=== PATIENT | male | born 1955 | race Two or more races ===

== ENCOUNTER 2023-08-12 19:27 | Inpatient (IN) | payer MEDICARE, OTHER ==
[~2023-08-12] VITALS: Ht 182.9 cm; Wt 74.9 kg
[2023-08-12] MEDS ORDERED: methylPREDNISolone SOD SUCC 125 MG/2ML VIAL ONE (19:54)
[2023-08-12 20:05] VITALS: O2SAT 94
[2023-08-12 20:06] LABS: BASOPHILS # (AUTO) 0.1 K/uL (0.0-0.2); BASOPHILS % (AUTO) 0.3 % (0.0-2.0); EOSINOPHILS # (AUTO) 0.4 K/uL (0.0-0.7); EOSINOPHILS % (AUTO) 1.6 % (0.0-6.0); HEMATOCRIT 37 % (39-51); HEMOGLOBIN 11.9 g/dL (13.5-17.5); LYMPHOCYTES % (AUTO) 7.6 % (20.0-44.0); MEAN CORPUSCULAR HEMOGLOBIN 30 PG (26.0-33.0); MEAN CORPUSCULAR HGB CONC 33 g/dl (31.0-36.0); MEAN CORPUSCULAR VOLUME 92 fL (80-96); MONOCYTES # (AUTO) 0.5 K/uL (0.1-1.30); MONOCYTES % (AUTO) 1.9 % (2.0-12.0); NEUTROPHILS # (AUTO) 23.8 K/uL (1.8-8.9); NEUTROPHILS % (AUTO) 88.6 % (43.0-81.0); PLATELET COUNT (AUTO) 391 K/uL (150-450); RED BLOOD CELL COUNT(AUTO) 3.98 MIL/uL (4.5-6.0); RED CELL DISTRIBUTION WIDTH 16.6 % (11.5-15.0); WHITE BLOOD COUNT (AUTO) 26.8 K/uL (4.3-11.0)
[2023-08-12] MEDS: IPRATROPIUM NEB FS 0.5 MG/2.5 ML AMPUL.NEB NEB ONE (20:06)
[2023-08-12] MEDS: ALBUTEROL FS 2.5 MG/3 ML VIAL.NEB NEB ONE (20:06)
[2023-08-12] MEDS: methylPREDNISolone SOD SUCC 125 MG/2ML VIAL IV ONE (20:08)
[2023-08-12] MEDS ORDERED: IPRATROPIUM NEB FS 0.5 MG/2.5 ML AMPUL.NEB ONE (20:09)
[2023-08-12] MEDS ORDERED: ALBUTEROL FS 2.5 MG/3 ML VIAL.NEB ONE (20:09)
[2023-08-12 20:15] LABS: CALCIUM, SERUM 8.6 mg/dL (8.5-10.1); CARBON DIOXIDE 27 mmol/L (21-32); CHLORIDE 97 mmol/L (98-107); CREATININE 1.4 mg/dL (0.6-1.3); GLUCOSE 294 mg/dL (74-106); POTASSIUM 3.6 mmol/L (3.5-5.1); SODIUM SERUM 134 mmol/L (136-145); UREA NITROGEN, BLOOD 10 mg/dL (7-18)
[2023-08-12 20:18] VITALS: O2SAT 91
[2023-08-12 20:20] LABS: ALANINE AMINOTRANSFERASE 16 U/L (12-78); ALBUMIN 2.5 g/dL (3.4-5.0); ALKALINE PHOSPHATASE 149 U/L (46-116); ASPARTATE AMINOTRANSFERASE 18 U/L (15-37); BILIRUBIN,DIRECT 0.1 mg/dL (0.0-0.2); BILIRUBIN,TOTAL 0.2 mg/dL (0.2-1.0); TOTAL PROTEIN, SERUM 8.4 g/dL (6.4-8.2)
[2023-08-12 20:37] LABS: INR 1.15 (0.91-1.10); PARTIAL THROMBOPLASTIN TIME 34.4 SEC (24.3-34.3); PROTHROMBIN TIME 12.1 SECS (9.2-11.1)
[2023-08-12 20:43] LABS: LACTIC ACID 2.4 mmol/L (0.4-2.0)
[2023-08-12] MEDS: AZITHROMYCIN 500 MG in IV D5W 250 ML IV ONE (21:00)
[2023-08-12] MEDS: CEFTRIAXONE 1GM BAG (ER ONLY) 1 GM/50 ML PIGGYBACK IV ONE (21:10)
[2023-08-12 21:45] LABS: APPEARANCE,URINE CLEAR (CLEAR); BILIRUBIN,URINE NEGATIVE (NEGATIVE); BLOOD, URINE NEGATIVE Ery/uL (NEGATIVE); COLOR,URINE YELLOW (YELLOW); KETONES,URINE NEGATIVE (NEGATIVE); LEUKOCYTE ESTERASE ,URINE NEGATIVE (NEGATIVE); NITRITE, URINE NEGATIVE (NEGATIVE); PROTEIN,URINE NEGATIVE (NEGATIVE); UGLUCOSE NEGATIVE (NEGATIVE); UROBILINOGEN,URINE 0.2 EU/dL (0.2)
[2023-08-12] MEDS ORDERED: ONDANSETRON HCL/PF 4 MG/2 ML VIAL IVP PRN (22:00)
[2023-08-12] MEDS ORDERED: ALBUTEROL FS 2.5 MG/3 ML VIAL.NEB NEB PRN (22:00)
[2023-08-12] MEDS ORDERED: IPRATROPIUM NEB FS 0.5 MG/2.5 ML AMPUL.NEB NEB PRN (22:00)
[2023-08-12] MEDS ORDERED: MAG HYDROX/AL HYDROX/SIMETH 30 ML UDC PO PRN (22:00)
[2023-08-12] MEDS ORDERED: MAGNESIUM HYDROXIDE 30 ML UDC PO PRN (22:00)
[2023-08-12] MEDS ORDERED: ZOLPIDEM TARTRATE 5 MG TABLET PO PRN (22:00)
[2023-08-12] MEDS ORDERED: ACETAMINOPHEN 325 MG TABLET PO PRN (22:00)
[2023-08-12] MEDS ORDERED: Z GUARD REMEDY 4 OZ OINT TP PRN (22:00)
[2023-08-12] MEDS ORDERED: AZITHROMYCIN 500 MG VIAL ONE (22:01)
[2023-08-12] MEDS ORDERED: CEFTRIAXONE 1GM BAG (ER ONLY) 50 ML IV ONE (22:01)
[2023-08-12] MEDS: IV NS 0.9% 1,000 ML BAG IV ONE (22:13)
[2023-08-12 22:14] LABS: ANISOCYTOSIS 1+; BAND % (MANUAL) 2 % (0.0-5.0); EOSINOPHILS % (MANUAL) 4 % (0-4); LYMPHOCYTES % (MANUAL) 5 % (16-48); MONOCYTES % (MANUAL) 2 % (0-11.0); NEUTROPHILS % (MANUAL) 87 (42-76); OVALOCYTES RARE; PLATELET ESTIMATE ADEQUATE; TEAR DROP CELLS RARE
[2023-08-13] VITALS (8 sets, daily range): BP systolic 101–123; BP diastolic 54–73; TEMP 97.7–98.8; O2SAT 96–100
[2023-08-13] MEDS: IV NS 0.9% 1,000 ML IV PRN (00:16)
[2023-08-13] MEDS: PIPERACILLIN /TAZOBACTAM 3.375 G in IV D5W 50 ML IV SCH (00:17)
[2023-08-13] MEDS: VANCOMYCIN 1.75 GM in IV D5W 500 ML IV ONE (01:19)
[2023-08-13] MEDS: methylPREDNISolone SOD SUCC 40 MG/ML VIAL IV SCH (05:14)
[2023-08-13 06:03] LABS: ABG BASE EXCESS 1.6 mmol/L; ABG OXYGEN SATURATION 98.3 % (92.0-98.5); ABG PCO2 38.7 mmHg (35.0-45.0); ABG TOTAL HEMOGLOBIN 11.7 G/dL (13.5-18.0); AaDO2 117.7 mmHg; COHb 0.3 % (0.5-1.5); MetHb 0.2 % (0.0-1.5); O2Hb 97.8 % (94.0-97.0); SITE, ABG Right Brachial; VENT MODE, BG N/C 40
[2023-08-13 07:15] LABS: CALCIUM, SERUM 8.5 mg/dL (8.5-10.1); CREATININE 1.3 mg/dL (0.6-1.3); MAGNESIUM 1.6 mg/dL (1.8-2.4); PHOSPHORUS 3.6 mg/dL (2.5-4.9); POTASSIUM 4.2 mmol/L (3.5-5.1)
[2023-08-13 07:35] LABS: HEMATOCRIT 30 % (39-51); HEMOGLOBIN 10.3 g/dL (13.5-17.5); LYMPHOCYTES # (AUTO) 0.4 K/uL (0.8-4.8); LYMPHOCYTES % (AUTO) 2.4 % (20.0-44.0); MEAN CORPUSCULAR HEMOGLOBIN 33 PG (26.0-33.0); MEAN CORPUSCULAR HGB CONC 35 g/dl (31.0-36.0); MEAN CORPUSCULAR VOLUME 96 fL (80-96); MONOCYTES # (AUTO) 0.1 K/uL (0.1-1.30); MONOCYTES % (AUTO) 0.6 % (2.0-12.0); NEUTROPHILS # (AUTO) 14.5 K/uL (1.8-8.9); PLATELET COUNT (AUTO) 236 K/uL (150-450); RED BLOOD CELL COUNT(AUTO) 3.09 MIL/uL (4.5-6.0); RED CELL DISTRIBUTION WIDTH 16.8 % (11.5-15.0); WHITE BLOOD COUNT (AUTO) 14.9 K/uL (4.3-11.0)
[2023-08-13] MEDS ORDERED: ATOR40TA PO (08:43)
[2023-08-13] MEDS ORDERED: ZINC220C6 PO (08:43)
[2023-08-13] MEDS ORDERED: BUDE0.5A4 IH (08:43)
[2023-08-13] MEDS ORDERED: ASPI-1169 PO (08:43)
[2023-08-13] MEDS ORDERED: BENZ-13 PO (08:43)
[2023-08-13] MEDS ORDERED: SILV20CR13 TP (08:43)
[2023-08-13] MEDS ORDERED: MAGN400O6 PO (08:43)
[2023-08-13] MEDS ORDERED: ASCO-340 PO (08:43)
[2023-08-13] MEDS ORDERED: CARB15DR3 EACHEYE (08:43)
[2023-08-13] MEDS ORDERED: NA P133E RC (08:43)
[2023-08-13] MEDS ORDERED: DIAZ5TAB4 PO (08:43)
[2023-08-13] MEDS ORDERED: ALBU2.5V38 IH (08:43)
[2023-08-13] MEDS ORDERED: BUME1TAB8 PO (08:43)
[2023-08-13] MEDS ORDERED: MULT-213 PO (08:43)
[2023-08-13] MEDS ORDERED: ZINC57OI4 TP (08:43)
[2023-08-13] MEDS ORDERED: IPRA0.2S9 IH (08:43)
[2023-08-13] MEDS ORDERED: ENOX40DI SQ (08:43)
[2023-08-13] MEDS ORDERED: FLUT16SP BNOSTRILS (08:43)
[2023-08-13] MEDS ORDERED: DOCU100T2 PO (08:43)
[2023-08-13] MEDS ORDERED: OMEP40CA21 PO (08:43)
[2023-08-13] MEDS ORDERED: HYDR-4076 PO (08:43)
[2023-08-13] MEDS ORDERED: AMIN30LI2 PO (08:43)
[2023-08-13] MEDS ORDERED: BISA10SU11 RC (08:43)
[2023-08-13] MEDS ORDERED: ACET-868 PO (08:43)
[2023-08-13] MEDS ORDERED: CRAN400T3 PO (08:43)
[2023-08-13] MEDS ORDERED: PETR113O TP (08:43)
[2023-08-13] MEDS ORDERED: ESCI10TA PO (08:43)
[2023-08-13] MEDS ORDERED: ACET-2605 PO (08:43)
[2023-08-13] MEDS: BUDESONIDE RESPULE INH 0.5 MG/2 ML AMPUL.NEB IH SCH (09:33)
[2023-08-13] MEDS: Magnesium 1GM/D5W 100ML PREMIX 100 ML IV SCH (10:11)
[2023-08-13] MEDS ORDERED: Magnesium 1GM/D5W 100ML PREMIX 100 ML IV SCH (10:30)
[2023-08-13 11:13] LABS: THYROID STIMULATING HORMONE 1.759 uIU/mL (0.358-3.74)
[2023-08-13] MEDS: ATORVASTATIN 10 MG TABLET PO SCH (11:17)
[2023-08-13] MEDS: ASPIRIN 81 MG TAB.CHEW PO SCH (11:17)
[2023-08-13] MEDS ORDERED: PIPERACILLIN /TAZOBACTAM 3.375 G in IV D5W 50 ML IV SCH (12:00)
[2023-08-13] MEDS: THERAHONEY GEL 1.5 OZ TUBE TP SCH (12:36)
[2023-08-13] MEDS: PIPERACILLIN /TAZOBACTAM 3.375 G in IV D5W 100 ML IV SCH (13:35)
[2023-08-13] MEDS: DOCUSATE SODIUM 100 MG CAPSULE PO SCH (17:11)
[2023-08-13] MEDS: VANCOMYCIN 0.75 GM in IV D5W 250 ML IV SCH (17:12)
[2023-08-13] MEDS: CLOTRIMAZOLE/BETAMETASONE DIPROPIONATE 15 GM TUBE TP SCH (17:12)
[2023-08-13] MEDS: GUAIFENESIN LA 600 MG TABLET.SA PO SCH (21:46)
[2023-08-13] MEDS: PANTOPRAZOLE 40 MG TABLET.DR PO SCH (21:46)
[2023-08-13] MEDS: ESCITALOPRAM OXALATE (10 MG) 10 MG TABLET PO SCH (21:47)
[2023-08-13] MEDS ORDERED: ATORVASTATIN 40 MG TABLET PO SCH (22:00)
[2023-08-14] VITALS (10 sets, daily range): BP systolic 101–121; BP diastolic 48–62; TEMP 97.5–98.4; O2SAT 97–99
[2023-08-14 01:50] LABS: HEMATOCRIT 28 % (39-51); HEMOGLOBIN 9.2 g/dL (13.5-17.5); LYMPHOCYTES # (AUTO) 0.6 K/uL (0.8-4.8); LYMPHOCYTES % (AUTO) 4.1 % (20.0-44.0); MEAN CORPUSCULAR HEMOGLOBIN 31 PG (26.0-33.0); MEAN CORPUSCULAR HGB CONC 33 g/dl (31.0-36.0); MEAN CORPUSCULAR VOLUME 92 fL (80-96); MONOCYTES # (AUTO) 0.2 K/uL (0.1-1.30); MONOCYTES % (AUTO) 1.2 % (2.0-12.0); NEUTROPHILS # (AUTO) 13.2 K/uL (1.8-8.9); NEUTROPHILS % (AUTO) 94.7 % (43.0-81.0); PLATELET COUNT (AUTO) 215 K/uL (150-450); RED CELL DISTRIBUTION WIDTH 16.4 % (11.5-15.0); WHITE BLOOD COUNT (AUTO) 13.9 K/uL (4.3-11.0)
[2023-08-14 02:03] LABS: ALBUMIN 2.1 g/dL (3.4-5.0); BILIRUBIN,TOTAL 0.3 mg/dL (0.2-1.0); CALCIUM, SERUM 8.4 mg/dL (8.5-10.1); CREATININE 1.4 mg/dL (0.6-1.3); POTASSIUM 3.9 mmol/L (3.5-5.1); TOTAL PROTEIN, SERUM 6.7 g/dL (6.4-8.2)
[2023-08-14] MEDS ORDERED: ASPIRIN 81 MG TAB.CHEW PO SCH (09:00)
[2023-08-14] MEDS: BUMETANIDE (1 MG) 1 MG TABLET PO SCH (09:03)
[2023-08-14] MEDS: PROSOURCE / PROSTAT (PYXIS) 30 ML UDC PO SCH (12:18)
[2023-08-14] MEDS: ENSURE ENLIVE 237 ML LIQUID (VANILLA) PO SCH (12:18)
[2023-08-14] MEDS: DIAZEPAM 5 MG TABLET PO PRN (13:49)
[2023-08-14] MEDS: ARGININE/GLUTAMINE/CALCIUM BMB 1 EACH POWD.PACK PO SCH (17:45)
[2023-08-15] VITALS (10 sets, daily range): BP systolic 116–146; BP diastolic 57–72; TEMP 97.9–98.2; O2SAT 98–100
[2023-08-15 03:08] LABS: BASOPHILS % (AUTO) 0.1 % (0.0-2.0); HEMATOCRIT 30 % (39-51); LYMPHOCYTES # (AUTO) 0.5 K/uL (0.8-4.8); LYMPHOCYTES % (AUTO) 3.8 % (20.0-44.0); MEAN CORPUSCULAR HEMOGLOBIN 31 PG (26.0-33.0); MEAN CORPUSCULAR HGB CONC 33 g/dl (31.0-36.0); MEAN CORPUSCULAR VOLUME 92 fL (80-96); MONOCYTES # (AUTO) 0.2 K/uL (0.1-1.30); MONOCYTES % (AUTO) 1.6 % (2.0-12.0); NEUTROPHILS # (AUTO) 11.4 K/uL (1.8-8.9); NEUTROPHILS % (AUTO) 94.5 % (43.0-81.0); PLATELET COUNT (AUTO) 213 K/uL (150-450); RED BLOOD CELL COUNT(AUTO) 3.27 MIL/uL (4.5-6.0); RED CELL DISTRIBUTION WIDTH 16.4 % (11.5-15.0); WHITE BLOOD COUNT (AUTO) 12.1 K/uL (4.3-11.0)
[2023-08-15 03:21] LABS: ALBUMIN 1.9 g/dL (3.4-5.0); BILIRUBIN,TOTAL 0.1 mg/dL (0.2-1.0); CALCIUM, SERUM 8.2 mg/dL (8.5-10.1); POTASSIUM 3.9 mmol/L (3.5-5.1); TOTAL PROTEIN, SERUM 6.4 g/dL (6.4-8.2)
[2023-08-15] MEDS ORDERED: VANCOMYCIN 500 MG in IV D5W 100ml IV SCH (16:00)
[2023-08-15] MEDS: VANCOMYCIN 500 MG in IV D5W 100ml IV SCH (21:56)
[2023-08-16] VITALS (9 sets, daily range): BP systolic 103–134; BP diastolic 59–76; TEMP 97.3–98.2; O2SAT 98–100
[2023-08-16 07:20] LABS: EOSINOPHILS # (AUTO) 0.1 K/uL (0.0-0.7); EOSINOPHILS % (AUTO) 0.6 % (0.0-6.0); HEMATOCRIT 33 % (39-51); HEMOGLOBIN 11.5 g/dL (13.5-17.5); LYMPHOCYTES # (AUTO) 1.2 K/uL (0.8-4.8); LYMPHOCYTES % (AUTO) 13.7 % (20.0-44.0); MEAN CORPUSCULAR HEMOGLOBIN 33 PG (26.0-33.0); MEAN CORPUSCULAR HGB CONC 35 g/dl (31.0-36.0); MEAN CORPUSCULAR VOLUME 96 fL (80-96); MONOCYTES # (AUTO) 0.7 K/uL (0.1-1.30); MONOCYTES % (AUTO) 8.2 % (2.0-12.0); NEUTROPHILS # (AUTO) 6.9 K/uL (1.8-8.9); NEUTROPHILS % (AUTO) 77.5 % (43.0-81.0); PLATELET COUNT (AUTO) 254 K/uL (150-450); RED BLOOD CELL COUNT(AUTO) 3.44 MIL/uL (4.5-6.0); RED CELL DISTRIBUTION WIDTH 16.3 % (11.5-15.0); WHITE BLOOD COUNT (AUTO) 8.9 K/uL (4.3-11.0)
[2023-08-16 07:33] LABS: ALBUMIN 2.1 g/dL (3.4-5.0); BILIRUBIN,TOTAL 0.1 mg/dL (0.2-1.0); CALCIUM, SERUM 8.5 mg/dL (8.5-10.1); CREATININE 0.8 mg/dL (0.6-1.3); POTASSIUM 4.2 mmol/L (3.5-5.1); TOTAL PROTEIN, SERUM 6.6 g/dL (6.4-8.2)
[2023-08-17] VITALS (8 sets, daily range): BP systolic 109–130; BP diastolic 60–66; TEMP 97.5–98.4; O2SAT 97–100
[2023-08-17] MEDS: PIPERACI/TAZO 3.375GM/D5W 50ML PB IV ONE ×2 (08:35)
[2023-08-17] MEDS: VANCOMYCIN 1 GM /D5W 250 ML PB IV ONE (08:35)
[2023-08-17 09:18] LABS: CALCIUM, SERUM 8.2 mg/dL (8.5-10.1); CREATININE 0.9 mg/dL (0.6-1.3)
[2023-08-17] MEDS ORDERED: DOXY-326 PO (09:48)
[2023-08-17] MEDS ORDERED: LEVO500T90 PO (09:48)
[2023-08-17] MEDS: VANCOMYCIN 500 MG in IV D5W 100ml IV SCH (21:02)
[2023-08-18] VITALS (7 sets, daily range): BP systolic 105–117; BP diastolic 63–83; TEMP 97.5–98.4; O2SAT 97–99
[2023-08-18 07:05] LABS: CALCIUM, SERUM 8.7 mg/dL (8.5-10.1); CREATININE 0.8 mg/dL (0.6-1.3); POTASSIUM 3.6 mmol/L (3.5-5.1)
[2023-08-19] VITALS (7 sets, daily range): BP systolic 125–132; BP diastolic 57–65; TEMP 97.5–97.7; O2SAT 96–99
[2023-08-19 10:44] LABS: CALCIUM, SERUM 8.7 mg/dL (8.5-10.1); CREATININE 0.9 mg/dL (0.6-1.3); POTASSIUM 4.1 mmol/L (3.5-5.1)
[2023-08-19] MEDS: LEVOFLOXACIN (250MG) 250 MG TABLET PO SCH (11:30)
[2023-08-19] MEDS: DOXYCYCLINE HYCLATE (100 MG) 100 MG TABLET PO SCH (21:05)
[2023-08-20] VITALS (8 sets, daily range): BP systolic 105–111; BP diastolic 58–67; TEMP 97.2–98; O2SAT 95–99
[2023-08-20 07:21] LABS: CALCIUM, SERUM 8.8 mg/dL (8.5-10.1); CREATININE 0.9 mg/dL (0.6-1.3)
[2023-08-21] VITALS (7 sets, daily range): BP systolic 108–123; BP diastolic 66–76; TEMP 97.6–98.2; O2SAT 97–99
[2023-08-21 07:06] LABS: POTASSIUM 4.3 mmol/L (3.5-5.1)
[2023-08-22 00:05] VITALS: BP 116/62; TEMP 98.6; O2SAT 99
[2023-08-22 07:27] LABS: CALCIUM, SERUM 8.9 mg/dL (8.5-10.1); CREATININE 0.9 mg/dL (0.6-1.3)
[2023-08-22 07:39] VITALS: O2SAT 99
[2023-08-22 07:50] VITALS: O2SAT 99
[2023-08-22 07:50] LABS: POTASSIUM 4.4 mmol/L (3.5-5.1)
[2023-08-22 08:00] VITALS: BP 143/81; TEMP 98.3; O2SAT 98
== END 2023-08-22 14:48 | DRG 871 ==
LOC: ER 19:30 → TELE1 22:20 → TELE-TD 23:09 → TELE1 08-13 13:02 → MEDSG1 08-17 09:40
PROVIDERS: ADMIT Nurse Practitioner Acute Care; ATTEND Internal Medicine
DX: A41.9 Sepsis, unspecified organism (principal); G93.41 Metabolic encephalopathy; N17.0 Acute kidney failure with tubular necrosis; J69.0 Pneumonitis due to inhalation of food and vomit; I21.A1 Myocardial infarction type 2; J96.01 Acute respiratory failure with hypoxia; E44.0 Moderate protein-calorie malnutrition; D68.59 Other primary thrombophilia; J44.0 Chronic obstructive pulmonary disease with (acute) lower respiratory infection; J44.1 Chronic obstructive pulmonary disease with (acute) exacerbation; J98.11 Atelectasis; J90 Pleural effusion, not elsewhere classified; E87.20 Acidosis, unspecified; E87.1 Hypo-osmolality and hyponatremia; G80.9 Cerebral palsy, unspecified; I11.0 Hypertensive heart disease with heart failure; I50.9 Heart failure, unspecified; M89.8X9 Other specified disorders of bone, unspecified site; E88.09 Other disorders of plasma-protein metabolism, not elsewhere classified; Z95.0 Presence of cardiac pacemaker; F41.9 Anxiety disorder, unspecified; K21.9 Gastro-esophageal reflux disease without esophagitis; Z99.81 Dependence on supplemental oxygen; D64.9 Anemia, unspecified; J45.909 Unspecified asthma, uncomplicated; Z74.01 Bed confinement status; E83.42 Hypomagnesemia; Y95 Nosocomial condition; Z79.51 Long term (current) use of inhaled steroids; Z79.01 Long term (current) use of anticoagulants; Z79.82 Long term (current) use of aspirin; Z79.899 Other long term (current) drug therapy; I48.0 Paroxysmal atrial fibrillation
CPT/HCPCS: 36415; 36600; 71045-TC; 71250-TC; 80048-TC; 80053-TC; 80061-TC; 80076-TC; 80202-TC; 82533; 82728-TC; 83540-TC; 83605-TC; 83735-TC; 84100-TC; 84439-TC; 84443-TC; 84484-TC; 84550-TC; 85025-TC; 85730-TC; 87040-TC; 87086-TC; 92526; 92611-TC; 93307-TC; 94799-TC; A4223; A6403; G0378; J0456; J0696; J2543; J2920; J2930; J3370; J3475; J7030; J7050; J7060